=== PATIENT | male | born 1945 | race Caucasian/White ===

== ENCOUNTER 2017-11-20 23:59 | Inpatient (IN) | payer MEDICARE, OTHER ==
[2017-11-21 01:53] LABS: ADD MAN DIFF? NO
[2017-11-21 01:56] LABS: BASOPHILS % 0.3 % (0.0-2.0); EOSINOPHILS # 0.1 10^3/ul (0.0-0.5); EOSINOPHILS % 1.1 % (0.0-7.0); HEMATOCRIT 32.2 % (42.0-52.0); HEMOGLOBIN 11.1 g/dl (14.0-18.0); LYMPHOCYTES % 20.1 % (15.0-51.0); MEAN CORPUSCULAR HEMOGLOBIN 31.5 pg (29.0-33.0); MEAN CORPUSCULAR HGB CONC 34.5 g/dl (32.0-37.0); MEAN CORPUSCULAR VOLUME 91.5 fl (82.0-101.0); MEAN PLATELET VOLUME 10.7 fl (7.4-10.4); MONOCYTE # 0.7 10^3/ul (0.3-0.9); MONOCYTES % 7.4 % (0.0-11.0); NEUTROPHILS % 70.8 % (39.0-77.0); PLATELET COUNT 176 10^3/UL (140-415); RED BLOOD COUNT 3.52 10^6/ul (4.70-6.10); RED CELL DISTRIBUTION WIDTH 12.6 % (11.5-14.5)
[2017-11-21 01:56] LABS: WHITE BLOOD COUNT 9.8 10^3/ul (4.8-10.8)
[2017-11-21 02:23] LABS: ALANINE AMINOTRANSFERASE 19 IU/L (13-69); ALBUMIN 4.4 g/dl (3.3-4.9); ALBUMIN/GLOBULIN RATIO 1.29; ALKALINE PHOSPHATASE 79 IU/L (42-121); ANION GAP 18 (8-16); ASPARTATE AMINO TRANSFERASE 16 IU/L (15-46); BILIRUBIN,INDIRECT 0.1 mg/dl (0-1.1); BILIRUBIN,TOTAL 0.1 mg/dl (0.2-1.3); BLOOD UREA NITROGEN 39 mg/dl (7-20); CALCIUM 10.7 mg/dl (8.4-10.2); CARBON DIOXIDE 27 mmol/L (21-31); CHLORIDE 98 mmol/L (97-110); GLUCOSE 172 mg/dl (70-220); POTASSIUM 3.7 mmol/L (3.5-5.1); SODIUM 139 mmol/L (135-144); TOTAL PROTEIN 7.8 g/dl (6.1-8.1)
[2017-11-21 02:34] LABS: B-TYPE NATRIURETIC PEPTIDE 548 PG/ML (0-125)
[2017-11-21 02:55] LABS: TROPONIN-I < 0.012 ng/ml (0.00-0.12)
[2017-11-21] MEDS: SOD CHLORIDE 0.45% 1,000 ML IV ×2 (03:19→16:39)
[2017-11-21] MEDS ORDERED: ONDANSETRON 4 MG INJ IV (03:30)
[2017-11-21] MEDS ORDERED: NA PHOSPHATE/BIPHOS 133 ML ENEMA PR (03:30)
[2017-11-21] MEDS ORDERED: LORAZEPAM 2 MG INJ IV (03:30)
[2017-11-21] MEDS ORDERED: ALBUTEROL/IPRATROPIUM (NEB) 3 ML AMP HHN (03:30)
[2017-11-21] MEDS ORDERED: NACL 0.9% 3 ML SYG IV (03:30)
[2017-11-21] MEDS ORDERED: DOCUSATE SODIUM 100 MG CAP PO (03:30)
[2017-11-21] MEDS ORDERED: hydrALAzine 20 MG INJ IV (03:30)
[2017-11-21] MEDS ORDERED: morphine 2 MG INJ IV (03:30)
[2017-11-21] MEDS ORDERED: NITROGLYCERIN (SL) 0.4 MG TAB SL (03:30)
[2017-11-21] MEDS ORDERED: MAGNESIUM HYDROXIDE 30ML CUP PO (03:30)
[2017-11-21] MEDS ORDERED: HYDROCODONE/APAP (5/325) TAB PO (03:30)
[2017-11-21] MEDS ORDERED: ACETAMINOPHEN 325 MG TAB PO (03:30)
[2017-11-21] MEDS: PANTOPRAZOLE (EC) 40 MG TAB PO ×2 (05:46→05:48)
[2017-11-21 07:11] LABS: CREATINE KINASE 48 IU/L (23-200)
[2017-11-21 07:25] LABS: CK INDEX 1.3; TROPONIN-I 0.018 ng/ml (0.00-0.12)
[2017-11-21 07:32] LABS: FREE T4 (FREE THYROXINE) 1.34 ng/dl (0.78-2.44)
[2017-11-21] MEDS: GABAPENTIN 300 MG CAP PO ×3 (08:11→20:15)
[2017-11-21] MEDS: ASPIRIN (EC) 325 MG TAB PO (08:12)
[2017-11-21] MEDS: LUBIPROSTONE 24 MCG CAP PO ×2 (08:12→20:14)
[2017-11-21] MEDS: FUROSEMIDE 40 MG TAB PO (08:12)
[2017-11-21] MEDS: FOLIC ACID 1 MG TAB PO (08:13)
[2017-11-21] MEDS: LOSARTAN 50 MG TAB PO (08:13)
[2017-11-21] MEDS: MULTIVITAMINS/MINERALS TAB PO (08:14)
[2017-11-21] MEDS: HEPARIN 5,000 UNIT/0.5 ML VIAL SC ×2 (08:16→20:23)
[2017-11-21 10:00] LABS: ADD UMIC YES; UR ASCORBIC ACID 20 mg/dL (NEGATIVE); UR BACTERIA FEW /HPF (NONE SEEN); UR BILIRUBIN (Dip) NEGATIVE (NEGATIVE); UR BLOOD (Dip) 1+ mg/dL (NEGATIVE); UR CLARITY CLEAR (CLEAR); UR COLOR YELLOW (YELLOW); UR GLUCOSE (Dip) NEGATIVE (NEGATIVE); UR KETONES (Dip) NEGATIVE (NEGATIVE); UR LEUKOCYTE ESTERASE (Dip) NEGATIVE Leu/ul (NEGATIVE); UR NITRITE (Dip) NEGATIVE (NEGATIVE); UR RBC 1 /HPF (0-5); UR SPECIFIC GRAVITY (Dip) 1.013 (1.003-1.030); UR TOTAL PROTEIN (Dip) NEGATIVE (NEGATIVE); UR UROBILINOGEN (Dip) NEGATIVE (NEGATIVE); UR WBC 0 /HPF (0-5)
[2017-11-21 10:33] LABS: SODIUM,URINE RANDOM 39 mmol/L (30-90)
[2017-11-21 10:33] LABS: CREATININE,URINE RANDOM 74.03 mg/dl (20-370)
[2017-11-21 10:42] LABS: CREATINE KINASE 53 IU/L (23-200)
[2017-11-21 10:55] LABS: CK INDEX 1.1
[2017-11-21 10:57] LABS: CK-MB 0.59 ng/ml (0.0-2.4); TROPONIN-I < 0.012 ng/ml (0.00-0.12)
[2017-11-21 15:52] LABS: CREATINE KINASE 58 IU/L (23-200)
[2017-11-21 16:13] LABS: CK INDEX 0.8
[2017-11-21 16:14] LABS: CK-MB 0.45 ng/ml (0.0-2.4); TROPONIN-I < 0.012 ng/ml (0.00-0.12)
[2017-11-21] MEDS: DOXAZOSIN 4 MG TAB PO (20:14)
[2017-11-21] MEDS: TAMSULOSIN (SR) 0.4 MG CAP PO (20:14)
[2017-11-21] MEDS: SOD CHLORIDE 0.9% 500 ML IV (23:23)
[2017-11-22] MEDS: SOD CHLORIDE 0.45% 1,000 ML IV (04:12)
[2017-11-22] MEDS: PANTOPRAZOLE (EC) 40 MG TAB PO (06:22)
[2017-11-22 08:41] LABS: ADD MAN DIFF? NO
[2017-11-22 08:44] LABS: WHITE BLOOD COUNT 5.3 10^3/ul (4.8-10.8)
[2017-11-22 08:44] LABS: BASOPHILS % 0.8 % (0.0-2.0); EOSINOPHILS # 0.1 10^3/ul (0.0-0.5); EOSINOPHILS % 1.7 % (0.0-7.0); HEMATOCRIT 32.3 % (42.0-52.0); HEMOGLOBIN 10.8 g/dl (14.0-18.0); LYMPHOCYTES % 37.5 % (15.0-51.0); MEAN CORPUSCULAR HEMOGLOBIN 31.1 pg (29.0-33.0); MEAN CORPUSCULAR HGB CONC 33.4 g/dl (32.0-37.0); MEAN CORPUSCULAR VOLUME 93.1 fl (82.0-101.0); MEAN PLATELET VOLUME 10.8 fl (7.4-10.4); MONOCYTE # 0.5 10^3/ul (0.3-0.9); NEUTROPHIL # 2.7 10^3/ul (1.6-7.5); PLATELET COUNT 166 10^3/UL (140-415); RED BLOOD COUNT 3.47 10^6/ul (4.70-6.10); RED CELL DISTRIBUTION WIDTH 12.7 % (11.5-14.5)
[2017-11-22 08:55] LABS: HEMOGLOBIN A1C 5.5 % (0-5.9)
[2017-11-22 09:06] LABS: ANION GAP 17 (8-16); BLOOD UREA NITROGEN 38 mg/dl (7-20); CALCIUM 8.8 mg/dl (8.4-10.2); CARBON DIOXIDE 25 mmol/L (21-31); CHLORIDE 103 mmol/L (97-110); CREATININE 1.92 mg/dl (0.61-1.24); GLUCOSE 120 mg/dl (70-220); MAGNESIUM 1.6 mg/dl (1.7-2.5); PHOSPHORUS 3.5 mg/dl (2.5-4.9); POTASSIUM 4.1 mmol/L (3.5-5.1); SODIUM 141 mmol/L (135-144)
[2017-11-22 09:09] LABS: CHOL/HDL RATIO 4.9 RATIO; HDL CHOLESTEROL 37 mg/dl (31-75); LDL CHOLESTEROL,CALCULATED 113 mg/dl; TRIGLYCERIDES 172 mg/dl (0-149)
[2017-11-22 09:09] LABS: CHOLESTEROL 184 mg/dl (100-200)
[2017-11-22] MEDS: LUBIPROSTONE 24 MCG CAP PO ×2 (09:57→21:26)
[2017-11-22] MEDS: ASPIRIN (EC) 325 MG TAB PO (09:57)
[2017-11-22] MEDS: FUROSEMIDE 40 MG TAB PO (09:57)
[2017-11-22] MEDS: FOLIC ACID 1 MG TAB PO (09:57)
[2017-11-22] MEDS: MULTIVITAMINS/MINERALS TAB PO (09:58)
[2017-11-22] MEDS: GABAPENTIN 300 MG CAP PO ×3 (09:58→21:27)
[2017-11-22] MEDS: HEPARIN 5,000 UNIT/0.5 ML VIAL SC ×2 (10:07→21:29)
[2017-11-22] MEDS: MAGNESIUM SULFATE 1 GM/D5W 100 ML IVPB (17:05)
[2017-11-22] MEDS: TAMSULOSIN (SR) 0.4 MG CAP PO (21:26)
[2017-11-22] MEDS: DOXAZOSIN 4 MG TAB PO (23:35)
[2017-11-22] MEDS: HYDROCODONE/APAP (5/325) TAB PO (23:35)
[2017-11-23] MEDS: PANTOPRAZOLE (EC) 40 MG TAB PO (05:39)
[2017-11-23 08:14] LABS: ADD MAN DIFF? NO
[2017-11-23 08:18] LABS: BASOPHIL # 0.1 10^3/ul (0.0-0.1); BASOPHILS % 0.9 % (0.0-2.0); EOSINOPHILS # 0.1 10^3/ul (0.0-0.5); EOSINOPHILS % 2.4 % (0.0-7.0); HEMATOCRIT 32.6 % (42.0-52.0); HEMOGLOBIN 10.9 g/dl (14.0-18.0); LYMPHOCYTES # 2.5 10^3/ul (0.8-2.9); LYMPHOCYTES % 47.7 % (15.0-51.0); MEAN CORPUSCULAR HEMOGLOBIN 30.6 pg (29.0-33.0); MEAN CORPUSCULAR HGB CONC 33.4 g/dl (32.0-37.0); MEAN CORPUSCULAR VOLUME 91.6 fl (82.0-101.0); MEAN PLATELET VOLUME 10.8 fl (7.4-10.4); MONOCYTE # 0.5 10^3/ul (0.3-0.9); MONOCYTES % 9.6 % (0.0-11.0); NEUTROPHIL # 2.1 10^3/ul (1.6-7.5); NEUTROPHILS % 39.2 % (39.0-77.0); PLATELET COUNT 164 10^3/UL (140-415); RED BLOOD COUNT 3.56 10^6/ul (4.70-6.10); RED CELL DISTRIBUTION WIDTH 12.5 % (11.5-14.5)
[2017-11-23 08:18] LABS: WHITE BLOOD COUNT 5.3 10^3/ul (4.8-10.8)
[2017-11-23 08:42] LABS: ANION GAP 15 (8-16); BLOOD UREA NITROGEN 40 mg/dl (7-20); CALCIUM 9.1 mg/dl (8.4-10.2); CARBON DIOXIDE 27 mmol/L (21-31); CHLORIDE 103 mmol/L (97-110); CREATININE 2.06 mg/dl (0.61-1.24); GLUCOSE 118 mg/dl (70-220); POTASSIUM 3.7 mmol/L (3.5-5.1); SODIUM 141 mmol/L (135-144)
[2017-11-23] MEDS: ASPIRIN (EC) 325 MG TAB PO (08:50)
[2017-11-23] MEDS: LUBIPROSTONE 24 MCG CAP PO (08:50)
[2017-11-23] MEDS: FOLIC ACID 1 MG TAB PO (08:50)
[2017-11-23] MEDS: MULTIVITAMINS/MINERALS TAB PO (08:50)
[2017-11-23] MEDS: GABAPENTIN 300 MG CAP PO ×2 (08:50→13:35)
[2017-11-23 08:52] LABS: MAGNESIUM 2.1 mg/dl (1.7-2.5)
[2017-11-23] MEDS: HEPARIN 5,000 UNIT/0.5 ML VIAL SC (08:55)
[2017-11-23] MEDS: AL HYDROX/MG HYDROX/SIMETH 30 ML CUP PO (14:46)
[2017-11-26 14:52] LABS: CREATININE, RANDOM URINE 82 mg/dL (20-370); MICROALBUMIN/CREATININE RATIO 37 (<30)
== END 2017-11-23 19:45 | disposition home or self-care (01) | DRG 313 ==
LOC: MS4 11-21 02:53 → E/R 23:59
DX: R07.89 Other chest pain (principal); N17.9 Acute kidney failure, unspecified; D63.8 Anemia in other chronic diseases classified elsewhere; E11.21 Type 2 diabetes mellitus with diabetic nephropathy; M94.0 Chondrocostal junction syndrome [Tietze]; I12.9 Hypertensive chronic kidney disease with stage 1 through stage 4 chronic kidney disease, or unspecified chronic kidney disease; N18.3 Chronic kidney disease, stage 3 (moderate); N40.0 Benign prostatic hyperplasia without lower urinary tract symptoms
CPT/HCPCS: 36415; 71045; 80048; 80053; 80061; 81001; 81003; 82043; 82550; 82553; 83036; 83735; 83880; 84100; 84155; 84300; 84439; 84443; 84484; 85025; 93005; 96372; 97163; 99285-25; G0378